=== PATIENT | male | born 1955 | race Caucasian/White ===

== ENCOUNTER 2021-06-13 12:43 | Outpatient (CLI) | payer MEDICARE, OTHER | END 2021-06-13 12:44 | disposition home or self-care (01) | LOC: EDSEX 12:43 → TBSIIMAG 12:43 | PROVIDERS: ATTEND Neurological Surgery | DX: M43.16 Spondylolisthesis, lumbar region (principal); Z98.1 Arthrodesis status | CPT/HCPCS: 72100 ==